=== PATIENT | male | born 1990 | race African-American/Black ===

== ENCOUNTER 2019-06-04 10:11 | Emergency (ER) | payer OTHER ==
[~2019-06-04] VITALS: Ht 175.3 cm; Wt 83.9 kg
--- NOTE | 2019-06-04 10:31 | NUR ---
patient reports sinus pressue on left side of face for 1x week
== END 2019-06-04 10:39 | disposition home or self-care (01) ==
LOC: ER 10:11
DX: J32.9 Chronic sinusitis, unspecified (principal)
CPT/HCPCS: A4663